=== PATIENT | male | born 2000 | race American Indian/Alaskan Native ===

== ENCOUNTER 2019-01-13 14:18 | Emergency (ER) | payer SELFPAY ==
[2019-01-13 14:29] VITALS: BP 131/81
--- NOTE | 2019-01-13 15:28 | Event Note ---
ED Screening Note Date of service: 01/13/19 Time: 15:26 ED Screening Note: Reports ear clogged with loss of hearing and went to [facility] yesterday and was ent to . Reoprts runnynose and drainage This initial assessment/diagnostic orders/clinical plan/treatment(s) is/are subject to change based on patients health status, clinical progression and re- assessment by fellow clinical providers in the ED. Further treatment and workup at subsequent clinical providers discretion. Patient/guardian urged not to elope from the ED as their condition may be serious if not clinically assessed and managed. Initial orders include:
--- NOTE | 2019-01-13 16:14 | Emergency Department Report ---
Minor Respiratory - HPI Chief Complaint: Earache Stated Complaint: EARS CLOGGED Time Seen by Provider: 01/13/19 14:26 Duration: 1 week Pain Location: Ear Severity: mild Minor Respiratory: Yes Rhinorrhea, Yes Able to Tolerate Fluids, No Sore Throat, No Ear Pain, No Cough, No Sick Contacts, No Hemoptysis, No Chest Pain, No Shortness of Breath, No Fever Other History: R ear fullness/decreased hearing x 1 week ED Review of Systems ROS: Stated complaint: EARS CLOGGED Other details as noted in HPI Comment: All other systems reviewed and negative ENT: as per HPI ED Past Medical Hx - Past Medical History Previous Medical History?: No - Surgical History Past Surgical History?: No - Social History Smoking Status: Never Smoker Substance Use Type: Alcohol - Medications Home Medications: Home Medications Medication Instructions Recorded Confirmed Last Taken Type predniSONE [Deltasone] 40 mg PO QDAY #10 tab 01/13/19 Unknown Rx Minor Respiratory Exam - Exam General: Vital signs noted. No distress. Alert and acting appropriately. HEENT: Yes Moist Mucous Membranes, No Pharyngeal Erythema, No Pharyngeal Exudates, No Rhinorrhea, No Conjuctival Injection, No Frontal Tenderness, No Maxillary Tenderness Ear: Neither TM Bulge (clear effusion on R), Neither TM Erythema, Neither EAC Pain (nonocclusive cerumen on R), Neither EAC Discharge Neck: Yes Supple, No Adenopathy Lungs: No Labored Respirations Abdomen: Yes Normal Bowel Sounds, No Tenderness, No Peritoneal Signs Skin: No Rash, No Edema Neurologic: Alert and oriented, no deficits. Musculoskeletal: Unremarkable. ED Course Vital Signs 01/13/19 14:25 Temperature 98.6 F Pulse Rate 76 Respiratory 18 Rate Blood Pressure 131/81 O2 Sat by Pulse 98 Oximetry ED Medical Decision Making - Medical Decision Making pt w Eustachian tube dysfunction and nonocclusive cerumen recommend steroid, debrox, and follow up - Differential Diagnosis OM, OE, cerumen, eustachian tube dysfunction Critical care attestation.: If time is entered above; I have spent that time in minutes in the direct care of this critically ill patient, excluding procedure time. ED Disposition Clinical Impression: Eustachian tube dysfunction Qualifiers: Laterality: right Qualified Code(s): H69.81 - Other specified disorders of Eustachian tube, right ear Disposition: DC-01 TO HOME OR SELFCARE Is pt being admited?: No Condition: Good Instructions: Barotrauma (ED) Additional Instructions: ruling machine set up operator Debrox at your local pharmacy for wax removal Prescriptions: predniSONE [Deltasone] 40 mg PO QDAY #10 tab Referrals: MANUEL CLEARY MD [Staff Physician] - 3-5 Days Time of Disposition: 16:13
== END 2019-01-13 16:39 | disposition home or self-care (01) ==
LOC: ED 14:18
DX: H69.81 Other specified disorders of Eustachian tube, right ear (principal); Z79.899 Other long term (current) drug therapy
CPT/HCPCS: 99282